=== PATIENT | female | born 1995 | race Caucasian/White ===

== ENCOUNTER 2017-08-17 22:25 | Emergency (ER) | payer MEDICAID, OTHER ==
--- NOTE | 2017-08-17 22:55 | EDPHY ---
H & P Time Seen by Provider: 08/17/17 22:43 HPI/ROS: CHIEF COMPLAINT: left ankle & foot pain HISTORY OF PRESENT ILLNESS: 22-year-old female arrives via private vehicle complaining of acute left foot and ankle pain after she misstepped off the curb shortly prior to arrival. Unable to bear weight. Intact skin. No proximal tibia or fibula pain. Mechanical incident. No head injury. PHYSICAL EXAM (Prior to examination, patient consented to physical exam, hands were washed and my usual and customary physical exam procedures followed) 1) GENERAL: Well-developed, well-nourished, alert and oriented. Appears uncomfortable. 2) HEAD: Normocephalic 3) HEENT: Pupils equal, round, reactive to light bilaterally. 4) LUNGS: Breathing comfortably. 5) MUSCULOSKELETAL: Tender to palpation lateral malleolus. Tender to palpation 5th metatarsal.5th MT nontender negative Eller test, compartments soft 6) SKIN: Intact no tenting 7) VASCULAR: DP,PT pulses and cap refill present and brisk DIFFERENTIAL DIAGNOSIS: in no particular order including but not limited to fracture, sprain, compartment syndrome Procedure: Crutches indications for crutch use discussed with patient. Patient fitted for crutches by ER staff. Observed ambulating with crutches. I think the patient has the capacity to safely use crutches. Usual and customary crutch walking precautions provided Procedure: Splint A adela boot splint was applied by ER police crime scene technician. After application of the splint I returned and re-examined the patient. The splint was adequately immobilizing the joint and distal to the splint the patient's circulation and sensation were intact. Patient shows no signs of compartment syndrome. Was given orthopedic precautions. Smoking Status: Current every day smoker Constitutional: Initial Vital Signs Temperature (C) 36.8 C 08/17/17 22:37 Heart Rate 80 08/17/17 22:37 Respiratory Rate 16 08/17/17 22:37 Blood Pressure 129/86 H 08/17/17 22:37 O2 Sat (%) 97 08/17/17 22:37 O2 Delivery Mode Room Air Allergies/Adverse Reactions: codeine Allergy (Mild, Verified 04/01/17 10:03) rash,nausea/vom oxycodone Allergy (Verified 08/17/17 22:42) Home Medications: Medication Instructions Recorded NK [No Known Home Meds] 08/17/17 MDM/Departure - MDM Imaging Results: Imaging Impressions Ankle X-Ray 08/17/17 22:45 Impression: Negative left ankle series. Foot X-Ray 08/17/17 22:45 Impression: Negative left foot radiographs. Images reviewed myself - Depart Disposition: Home, Routine, Self-Care Clinical Impression: Sprain of left foot Qualifiers: Encounter type: initial encounter Qualified Code(s): S93.602A - Unspecified sprain of left foot, initial encounter Left ankle sprain Qualifiers: Encounter type: initial encounter Involved ligament of ankle: unspecified ligament Qualified Code(s): S93.402A - Sprain of unspecified ligament of left ankle, initial encounter Condition: Good Instructions: Hydrocodone/Acetaminophen (By mouth), Ankle Sprain (ED) Additional Instructions: Return to the ER immediately if you experience discoloration, have worsening pain, numbness, tingling, or any other symptoms that concern you. If you received x-rays in the emergency department today, be advised, that ligamentous , tendon, muscular, and other non-bony injury cannot be fully ruled out. Try to keep your affected extremity elevated above the level of your chest, and keep cold packs on the affected area, for the next 48 hours. Adult Pain & Fever Control: We recommend Acetaminophen (Tylenol) and Ibuprofen (Motrin,Advil) for pain and fever control. When fever is high or pain severe, both drugs can be used at the same time, but at different intervals. Please note the time differences. Your dose is: Acetaminophen 650mg every 4 to 6 hours Ibuprofen 600mg every 6 hours with food OR N Referrals: Jose Em MD [Medical Doctor] - As per Instructions
[2017-08-17 23:44] VITALS: BP 125/83
== END 2017-08-17 23:43 | disposition home or self-care (01) ==
LOC: MERGE 22:25
DX: S93.602A Unspecified sprain of left foot, initial encounter (principal); S93.402A Sprain of unspecified ligament of left ankle, initial encounter; F17.200 Nicotine dependence, unspecified, uncomplicated; X50.9XXA Other and unspecified overexertion or strenuous movements or postures, initial encounter; Y92.89 Other specified places as the place of occurrence of the external cause; Y99.8 Other external cause status; Y93.89 Activity, other specified